=== PATIENT | female | born 1940 | race Hispanic/Latino ===

== ENCOUNTER 2017-10-04 09:37 | Observation (INO) | payer MEDICARE ==
[2017-10-02 12:02] VITALS: BMI 17.9
[2017-10-04] MEDS ORDERED: Propofol 10 mg/ml Inj (20 ML) ONE (11:58)
[2017-10-04] MEDS: cefTRIAXone 1 gm 1 GM/100 ML BAG IVPB ONE ×2 (12:02→12:03)
[2017-10-04] MEDS ORDERED: Lactated Ringer's 1,000 ML IV ONE (12:38)
[2017-10-04] MEDS ORDERED: HYDROmorphone 0.5 mg/0.5 ml ISec IVP PRN (12:47)
[2017-10-04] MEDS ORDERED: HYDROmorphone 1 mg/ml ISec ONE (13:41)
[2017-10-04 17:14] VITALS: RESP 20
--- NOTE | 2017-10-04 17:27 | RAD ---
HISTORY: TRANSITIONAL CELL CARCINOMA COMPARISON: And pelvis CT with and without contrast 08/29/2017 FINDINGS: BOWEL: Prominent fecal loading seen on throughout the colon, however, there is no obstructive bowel pattern appreciated. No prominent free intraperitoneal gas identified. BONES: A dextroscoliotic lumbar spinal deformity again appreciated. Posterior spinal fusion hardware identified from L3-L5 once again. OTHER FINDINGS: A double-J left ureteral stent is identified in place limited residual iodinated contrast material within the pelvocaliceal system left kidney and the urinary bladder. IMPRESSION: As above.
[2017-10-04] MEDS: Oxycodone/Acetaminophen 5/325 mg Tab PO PRN (22:15)
[2017-10-04] MEDS: Lactated Ringer's 1,000 ML IV SCH (22:17)
--- NOTE | 2017-10-04 23:04 | HP ---
REASON FOR ADMISSION: Workup of hematuria and transitional cell carcinoma. HISTORY OF PRESENT ILLNESS: A very pleasant lady, she is currently 77 years old, she is being admitted now to same day surgery for cystoscopy, retrograde pyelogram, and uteroscopy. What she has noted, she has a history of transitional cell carcinoma and then she had an abnormal cytology, and then it looks like on the CAT scan, I have had the chance to review the CAT scan, see below, that there is a possible filling defect and with history of transitional cell carcinoma, I want to make sure there is no filling defects. PAST MEDICAL AND SURGICAL HISTORY: As listed on the chart, a patient of Dr. Hinton. No history of an OH or CVA. There is medical clearance on the chart as well. MEDICATIONS: . ALLERGIES: NONE. SOCIAL HISTORY: She came to the office with her twin sister. Otherwise, unremarkable history. She is a nonsmoker. PHYSICAL EXAMINATION: GENERAL: A well-nourished female, in no apparent distress. VITAL SIGNS: Within normal limits. NECK: No cervical or axillary lymphadenopathy. LUNGS: Clear. HEART: Normal S1, S2. ABDOMEN: Overall, soft and nontender. PELVIC: Previously was within normal limits. No real pelvic or rectal masses. DIAGNOSES: 1. History of transitional cell carcinoma. 2. Abnormal cytology. 3. Abnormal filling defect on CT scan. PLAN: A very pleasant lady, 77 years old with history of TCC, with concerns of the distal ureters, so the plan is as follows: She is here for cystoureteroscopy, and possible biopsy and fulguration. I do want to mention we did an office cystoscopy as well. We did not really find any abnormalities. There were some little irregularities. We did a biopsy that was not carcinoma. While there is a low suspicion, with the history of TCC, we need to proceed. I explained to the patient risks, benefits, and alternatives. We discussed the risks of not doing surgery, the risk of doing surgery, and we are going to plan to proceed. Further plans will follow. Tristan Bryant MD cc: Dr. Goldstein. Dr. Barnes. Dr. Hinton. [facility] # [id number]
[2017-10-05] MEDS: Lactated Ringer's 1,000 ML IV SCH (02:41)
[2017-10-05 07:53] VITALS: BP 124/66; PULSE 63; TEMP 98; O2SAT 96
--- NOTE | 2017-10-05 07:53 | OP ---
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 POSTOPERATIVE DIAGNOSES: There is no definite evidence of transitional cell carcinoma in the bladder. PROCEDURES: Examination under anesthesia, cystoscopy, left retrograde pyelogram, left ureteroscopy, and insertion of left double J-stent with danglers. There were no complications. BLOOD LOSS: Less than 10 mL. DRAINS: stent. FINDINGS: 1. There are no bladder masses. 2. There is no really ureteral masses or infected line, it looks very nice. 3. There was clear efflux from the ureter, the left and right side. COMPLICATIONS: There were no complications. INDICATIONS: See history and physical for further details. The patient in the office cystoscopy, with no evidence of cancer. At that time, we also did not see any blood from the orifice but the CAT scan showed an abnormality in the left distal ureter, got a chance to review it, and on reviewing it, certainly it is concerning but it is not overtly concerning, but we did not want to miss any malignancy with history of transitional cells reporting here yesterday. We discussed this . DESCRIPTION OF PROCEDURE: After obtaining informed consent, the patient was placed on the table. Routine monitors were placed. Antibiotic prophylaxis was used. Time-out was called and we confirmed the patient and positioning. Cystoscope via urethra. Ureteral orifice identified and pictures were taken and it was there for a while and again it is clear efflux. I did a retrograde pyelogram being very careful shooting at the distal ureter, multiple images that are taken and saved and some that are not even saved. no obvious filling defects. We went over up to the kidney. We introduced the wire up to the kidney. We introduced a secondary wire to dilate the distal ureter. We introduced the ureteroscope and took multiple pictures on the way in and out. We have good clear vision and has definitely no filling defects. At this point because I have injected so much material, water, and contrast, I put a stenting with danglers, we are planning to remove it. The patient tolerated the procedure without complications. We will plan for a close followup given all concerns. Tristan Bryant MD [facility] # [id number]
[2017-10-05] MEDS: Oxycodone/Acetaminophen 5/325 mg Tab PO PRN ×2 (08:42→13:36)
--- NOTE | 2017-10-05 11:07 | RAD ---
PROCEDURE: Intraoperative Fluoroscopy. HISTORY: TRANSITIONAL CELL CARCINOMA FINDINGS: Fluoroscopic assistance was provided. . Please refer to the operative report from SULMA Longoria , MD JASMIN.
== END 2017-10-05 05:22 | disposition home or self-care (01) ==
LOC: C.SDS 09:37 → C.6T 15:11 → C.9S 15:11
PROVIDERS: ADMIT Urology; ATTEND Urology
DX: R31.9 Hematuria, unspecified (principal); R31.29 Other microscopic hematuria; C68.9 Malignant neoplasm of urinary organ, unspecified; Z85.51 Personal history of malignant neoplasm of bladder; Z88.8 Allergy status to other drugs, medicaments and biological substances; Z88.5 Allergy status to narcotic agent; Z79.52 Long term (current) use of systemic steroids; F41.9 Anxiety disorder, unspecified; M06.9 Rheumatoid arthritis, unspecified; M16.10 Unilateral primary osteoarthritis, unspecified hip; M81.0 Age-related osteoporosis without current pathological fracture; R89.6 Abnormal cytological findings in specimens from other organs, systems and tissues; R93.41 Abnormal radiologic findings on diagnostic imaging of renal pelvis, ureter, or bladder; Z87.440 Personal history of urinary (tract) infections
CPT/HCPCS: 52332; 52351; 74018; 76000; C1758; C1769; C2617; G0378; J0696; J1170; J1885; J2405; J2765; J7120

== ENCOUNTER 2018-11-06 11:01 | Outpatient (CLI) | payer MEDICARE | END 2018-11-06 11:02 | disposition home or self-care (01) | LOC: C.MAMMO 11:01 | DX: Z12.31 Encounter for screening mammogram for malignant neoplasm of breast (principal) ==